=== PATIENT | female | born 1990 | race Two or more races ===

== ENCOUNTER → 2016-10-02 | Outpatient (CLI) | payer OTHER | LOC: FIMAGING 10:35 | PROVIDERS: ATTEND Midwife | DX: O99.212 Obesity complicating pregnancy, second trimester (principal); Z3A.20 20 weeks gestation of pregnancy; Z68.41 Body mass index [BMI] 40.0-44.9, adult ==

== ENCOUNTER → 2016-11-13 | Outpatient (CLI) | payer OTHER | LOC: FIMAGING 12:47 | PROVIDERS: ATTEND Midwife | DX: O99.212 Obesity complicating pregnancy, second trimester (principal); Z3A.26 26 weeks gestation of pregnancy ==

== ENCOUNTER → 2016-12-12 | Outpatient (CLI) | payer OTHER | LOC: FIMAGING 12:39 | PROVIDERS: ATTEND Midwife | DX: O99.213 Obesity complicating pregnancy, third trimester (principal); Z3A.30 30 weeks gestation of pregnancy ==

== ENCOUNTER 2017-02-10 16:07 | Observation (INO) | payer OTHER ==
--- NOTE | 2017-02-10 19:30 | SOAPPROG ---
SOAP Progress Note Assessment/Plan: Assessment: [id number] with IUP @ 39-3wks (by L/10) No evidence of SROM/labor GBS Negative Cat 1 FHR tracing Plan: d/c home labor prec/FKC f/u in office at next sched appt Dr Louisa Howell aware and agrees with POC 02/10/17 19:27 02/11/17 01:32 MST Subjective: Pt presents to L&D with c/o ?leaking fluid since 0500. She denies any VB or regular contractions. She reports +FM. She denies any headaches, visual changes , epigastric pain. - Time Spent With Patient Time Spent With Patient: approximately 60 min was spent with pt, of which, approximately 45 minutes was on direct counseling and coordination of care. - Pending Discharge Pending Discharge Within 24 Hours: Yes Pending Discharge Date: 02/12/17 Pending Discharge Time: 11:00 Physical Exam - Physical Exam General Appearance: WD/WN, alert, no apparent distress Neck: supple Respiratory: lungs clear, normal breath sounds Cardiac/Chest: regular rate, rhythm Abdomen: non-tender, soft Pelvic Exam: other (negative nitrazine, negative pooling, negative valsalva, negative ferning) Rectal: deferred Skin: normal color, warm/dry Extremities: non-tender Neuro/Psych: no motor/sensory deficits, alert, normal mood/affect, oriented x 3 ICD10 Worksheet Patient Problems: Problems Problem Status Onset H/O anxiety disorder Acute Obesity affecting Acute Supervision of normal in third trimester Acute - ICD10 Problem Qualifiers (1) Supervision of normal in third trimester Qualifiers: Normal : normal first Qualified Code(s): Z34.03 - Encounter for supervision of normal first , third trimester (2) Obesity affecting Qualifiers: Trimester: third trimester Qualified Code(s): O99.213 - Obesity complicating , third trimester (3) H/O anxiety disorder History of Present Illness - General Stated Complaint: c/o ?LOF Source: Patient (This is a [id number] with IUP@ 39-3wks (by L/10) that presents to L&D with c/o ?LOF. She states she had a couple small "gushes" of fluid this morning. She denies any current leaking of fluid. She denies any contractions, VB. She reports +FM. She states the last time she felt gush of fluid was around 1000. She denies any headaches, blurred visual/changes, epigastric pain. She state she overall feels good.) Allergies/Adverse Reactions: Penicillins Allergy (Severe, Verified 02/10/17 19:07) Rash prednisone Allergy (Mild, Verified 02/10/17 19:04) THRUSH IN MOUTH Home Medications: Medication Instructions Recorded 1 tab PO 02/10/17
== END 2017-02-10 23:50 | disposition home or self-care (01) ==
LOC: INTOOBSV 16:07 → FLD 16:07
PROVIDERS: ADMIT Advanced Practice Midwife; ATTEND Advanced Practice Midwife
DX: O99.89 Other specified diseases and conditions complicating pregnancy, childbirth and the puerperium (principal); O99.213 Obesity complicating pregnancy, third trimester; Z3A.39 39 weeks gestation of pregnancy
CPT/HCPCS: G0378 ×2

== ENCOUNTER 2017-02-11 23:20 | Inpatient (IN) | payer OTHER ==
[2017-02-12] MEDS ORDERED: OLIVE OIL 118 ML BTL MISC PRN (00:47)
[2017-02-12] MEDS ORDERED: OXYTOCIN 20 UNIT in LR 1,000 ML IV PRN (00:47)
[2017-02-12] MEDS ORDERED: TERBUTALINE SULFATE 1 MG/ML VIAL IV PRN (00:47)
[2017-02-12] MEDS ORDERED: EPSOM SALT 454 GM TP PRN (00:47)
[2017-02-12] MEDS ORDERED: LR 1,000 ML IV PRN (00:47)
--- NOTE | 2017-02-12 01:05 | PDGENHP ---
History and Physical - Chief Complaint painful contractions, 39 weeks gestation - History of Present Illness 26-year-old G1 female @ 39.5 weeks (EDC 02/14/17 by LMP c/w US) presents with painful contractions. She was seen on L&D on 02/10/17 with complaints of LOF, but was ruled out for rupture. She states that she began feeling painful contractions at 8AM on 02/11. By evening of 02/11 she was feeling painful contractions which took her breath away every 2-5 minutes. She still feels leakage of clear fluid. She denies vaginal bleeding. is complicated by morbid obesity, suspect EFW 97%ile (3rd trimester scan), transfer of care from [facility] @ 35 weeks. A+ / Antibody screen negative / RPR NR / Rubella Immune / HBsAg Neg / HIV Neg / Baseline PIH labs Neg / 24 hr urine protein Neg / Varicella Immune / 1 hr GTT 82. History Information - Allergies/Home Medication List Allergies/Adverse Reactions: Penicillins Allergy (Severe, Verified 02/10/17 19:07) Rash prednisone Allergy (Mild, Verified 02/10/17 19:04) THRUSH IN MOUTH Home Medications: 1 tab PO 02/10/17 [Last Taken 02/10/17] I have personally reviewed and updated: family history, medical history, social history, surgical history - Past Medical History no pertinent PMH Additional medical history: MORBID OBESITY - Surgical History Reports: no pertinent surgical hx - Social History Smoking Status: Former smoker Alcohol Use: None Drug Use: None Review of Systems Review of Systems: ROS: 10pt was reviewed & negative except for what was stated in HPI & below Physical Exam Physical Exam: Constitutional: uncomfortable Cardiovascular: regular rate and rhythym, no murmur, rub, or gallop Respiratory: clear to auscultation Gastrointestinal: soft, non-tender abdomen, other (morbidly obese abdomen, difficult to palpate fundus) Genitourinary: other (SSE: no pooling, fern negative; CE: 1 cm dilated / 95% effaced / -3 station / posterior) Skin: warm Neurologic: AAOx3, sensation intact bilaterally Psychiatric: interacting appropriately, anxious Lab Data & Imaging Review Interpretation: FHR tracin, cat I. [place]: q 3-5 minutes, lasting 30-60s, regular Assessment & Plan Assessment: 26-year-old G1 female @ 39.5 weeks gestation with early labor, painful contractions. c/b late OMER, morbid obesity, and suspect EFW >90%ile. Plan: Admit for expectant management of labor. Patient desires epidural for pain management.
--- NOTE | 2017-02-12 02:10 | OBPROG ---
Labor Progress Note Assessment/Plan: Assessment: 26-year-old G1 female @ 39.5 weeks in early labor. Painful contractions. Plan: Anesthesia consulted for epidural. Vertex confirmed with bedside US. 02/12/17 02:08 Subjective/Intrapartum Course: 02/12/17 02:09 Painful contractions. - SVE Dilation (cm): 1 Effacement (%): 90 Station: -3 Membranes: Intact - Contraction Pattern Assessment Current Contraction Pattern: Regular - FHR Assessment [place] FHR (bpm): 140 FHR Pattern Variability: Moderate FHR Category: 1 Oxytocin Orders Assessment - Pre-Induction/Augmentation Assessment Gestational Age: 39 week(s) and 5 day(s) ICD10 Worksheet Patient Problems: Problems Problem Status Onset H/O anxiety disorder Acute Obesity affecting Acute Supervision of normal in third trimester Acute
[2017-02-12 02:14] LABS: % IMMATURE GRANULYOCYTES 1.5 % (0.0-1.1); ABSOLUTE IMMATURE GRANULOCYTES 0.28 10^3/uL (0.00-0.10); ABSOLUTE NRBC COUNT 0.04 10^3/uL (0-0.01); ADD DIFF? NO; ADD MORPH? NO; ADD SCAN? NO; ATYPICAL LYMPHOCYTE FLAG 0 (0-99); FRAGMENT RBC FLAG 20 (0-99); HEMATOCRIT 35.6 % (38.0-47.0); HEMOGLOBIN 10.8 g/dL (12.6-16.3); LEFT SHIFT FLG 10 (0-99); LIPEMIA HEMOLYSIS FLAG 80 (0-99); MEAN CELL HEMOGLOBIN CONCENTR. 30.3 g/dL (32.4-36.7); MEAN CELL VOLUME 79.1 fL (81.5-99.8); MEAN PLATELET VOLUME 11.9 fL (8.7-11.7); NRBC-AUTO% 0.2 % (0.0-0.2); PLATELET CLUMPS FLAG 0 (0-99); PLATELET COUNT 301 10^3/uL (150-400); RED CELL DISTRIBUTION WIDTH 16.2 % (11.5-15.2)
[2017-02-12] MEDS ORDERED: OLIVE OIL 118 ML BTL ONE (02:23)
[2017-02-12] MEDS ORDERED: OXYTOCIN 10 UNIT/ML VIAL ONE (02:23)
[2017-02-12] MEDS ORDERED: AMMONIA AROMATIC 1 EACH AMP IH ONE (02:23)
[2017-02-12] MEDS ORDERED: LIDOCAINE 1% 300 MG/30 ML SDV ONE (02:23)
[2017-02-12] MEDS ORDERED: TERBUTALINE SULFATE 1 MG/ML VIAL ONE (02:23)
[2017-02-12] MEDS ORDERED: MISOPROSTOL 200 MCG TAB ONE (02:24)
[2017-02-12] MEDS ORDERED: ACETAMINOPHEN 325 MG TAB PO ONE (02:30)
[2017-02-12] MEDS ORDERED: ONDANSETRON 4 MG/2 ML VIAL IVP PRN ×2 (02:40→10:01)
[2017-02-12] MEDS ORDERED: PHENYLEPHRINE HCL 100 MCG/ML SYR IVP PRN ×2 (02:40→10:01)
--- NOTE | 2017-02-12 02:40 | PREANESOB ---
Obstetric Pre-Anesthesia Info - General Info Proposed Procedure: 26 yo for leonel : 1 Para: 0 ANUPAMA: 02/14/17 Gestational Age: 39 week(s) and 5 day(s) - Info Status: Full Term - Labor Status Cervical Dilation per last OB SVE: 1 Station per last OB SVE: -3 Anesthesia ROS: bmi 54 Allergies/Adverse Reactions: Allergy/AdvReac Type Severity Reaction Status Date / Time Penicillins Allergy Severe Rash Verified 02/10/17 19:07 prednisone Allergy Mild THRUSH IN Verified 02/10/17 19:04 MOUTH Home Medications: Medication Instructions Recorded 1 tab PO 02/10/17 Visit Medications: Generic Name Dose Route Start Last Admin Trade Name Freq PRN Reason Stop Dose Admin Lactated Ringer's 1,000 mls @ 0 mls/hr 02/12/17 00:47 02/12/17 02:04 Lr IV 08/11/17 00:46 1,000 mls PRN PRN Administration SEE PROTOCOL CONDITIONS Protocol Per Protocol Oxytocin 20 unit/ Lactated 1,002 mls @ 150 mls/hr 02/12/17 00:47 Ringer's IV PRN PRN Post- bleeding Ibuprofen 600 mg 02/12/17 00:47 Motrin PO 08/11/17 00:46 Q6HRS PRN post , inflammation Magnesium Sulfate 454 gm 02/12/17 00:47 Epsom Salt TP 08/11/17 00:46 Q1H PRN perineal discomfort [place] Oil 118 ml 02/12/17 00:47 Sweet Oil MISC 08/11/17 00:46 ONCE PRN perineal massage Terbutaline Sulfate 0.25 mg 02/12/17 00:47 Brethine IV 08/11/17 00:46 ONCE PRN Tachysystole Discontinued Medications Generic Name Dose Route Start Last Admin Trade Name Freq PRN Reason Stop Dose Admin Acetaminophen 650 mg 02/12/17 02:30 Tylenol PO 02/12/17 02:31 ONCE ONE Ammonia (Aromatic Spirit) Confirm 02/12/17 02:23 Ammonia Aromatic Administered 02/12/17 02:24 Dose 1 each IH .STK-MED ONE Ephedrine Sulfate Confirm 02/12/17 02:23 Ephedrine Sulfate Administered 02/12/17 02:24 Dose 50 mg .ROUTE .STK-MED ONE Lidocaine HCl Confirm 02/12/17 02:23 Lidocaine Hcl 1% Administered 02/12/17 02:24 Dose 300 mg .ROUTE .STK-MED ONE Misoprostol Confirm 02/12/17 02:24 Cytotec Administered 02/12/17 02:25 Dose 800 mcg .ROUTE .STK-MED ONE [place] Oil Confirm 02/12/17 02:23 Sweet Oil Administered 02/12/17 02:24 Dose 118 ml .ROUTE .STK-MED ONE Oxytocin Confirm 02/12/17 02:23 Pitocin Administered 02/12/17 02:24 Dose 40 unit .ROUTE .STK-MED ONE Terbutaline Sulfate Confirm 02/12/17 02:23 Brethine Administered 02/12/17 02:24 Dose 1 mg .ROUTE .STK-MED ONE - Vital Signs Height/Weight (Nursing): Height 5 ft 3 in Weight 137.438 kg Labs: 02/12/17 01:50
[2017-02-12] MEDS ORDERED: PHENYLEPHRINE HCL 100 MCG/ML SYR ONE (02:43)
[2017-02-12] MEDS ORDERED: fentaNYL 100 MCG/2 ML INJ ONE ×3 (02:43→08:13)
[2017-02-12] MEDS ORDERED: BUPIVACAINE 0.25% 30 ML SDV ONE (02:43)
[2017-02-12] MEDS ORDERED: fentaNYL 2MCG/ML/BUP 0.1% RTU 100 ML BAG EP ONE (02:43)
[2017-02-12] MEDS ORDERED: fentaNYL 2MCG/ML/BUP 0.1% RTU 100 ML EP SCH (03:00)
[2017-02-12] MEDS ORDERED: LR 500 ML IV SCH (03:00)
--- NOTE | 2017-02-12 03:34 | POSTANESTH ---
Post Anesthetic Evaluation Cardiovascular Status: Normal, Stable Respiratory Status: Normal, Stable Level of Consciousness/Mental Status: Can Participate in Eval Pain Control: Adequate, Prn Tx Ordered Nausea/Vomiting Control: Adequate, Prn Tx Ordered Complications Possibly Related to Anesthesia: None Noted
[2017-02-12] MEDS ORDERED: D5W LR 1,000 ML IV SCH (05:15)
[2017-02-12] MEDS ORDERED: D5W IV SCH ×2 (05:30→06:00)
[2017-02-12] MEDS ORDERED: GENTAMICIN SULFATE IV SCH ×2 (05:30→06:00)
--- NOTE | 2017-02-12 05:39 | OBPROG ---
Labor Progress Note Assessment/Plan: Assessment: 26-year-old G1 female @ 39.5 weeks in early labor. Painful contractions. Plan: Anesthesia consulted for epidural. Vertex confirmed with bedside US. 02/12/17 02:08 02/12/17 05:20 A/P: 26-year-old G1 female @ 39.5 weeks who presented in labor, now s/ p epidural. 1. Suspect chorioamnionitis: Maternal low-grade fever, maternal tachycardia and tachycardia have raised my suspicion for chorioamnionitis. I offered IV antibiotics for treatment of suspected chorioamnionitis. Patient has severe penicillin allergy so antibiotic choice and dosing was discussed with on-call pharmacist. Ancef 3 g q 8hrs IV and gentamicin 5mg/kg q24 hr IV will be started. Clindamycin will be available if a third antibiotic is appropriate. 2. Category 2 heart rate tracing: I was called by RN to review heart rate tracing and to discuss with patient and her the concerning tracing. heart rate has been difficult to monitor secondary to patient's pain and body habitus. Internal monitors such as scalp electrode are not possible with cervical exam and station of head. However, following epidural placement heart rate tracing with external monitors was obtained without difficulty. Tachycardia with minimal variability for long periods occurred despite resuscitation measures (supplemental O2 mask, IVF bolus, repositioning of patient). I discussed my concern for the heart rate tracing and that if the heart rate persisted as a category II tracing or worsened (i.e., decels) with her cervix being only 1 cm dilated (remote from delivery) that I would strongly suggest a delivery. The patient and her partner, Maykel, were very upset with the idea of a possible operative delivery. They expressed their frustration noting that they felt that they were being forced into interventions to which they did not feel comfortable. They stated that they were not being listened to and that their less-intervention plan has been disregarded each step along this . I offered to monitor FHR tracing further with the additional interventions of D5LR IVF and IV antibiotics for suspected chorioamnionitis. If the tracing worsens I will promptly offer, again, a delivery. 3. Labor progress: Patient is much more relaxed with epidural. Contractions are occurring q 1-2 minutes and patient can feel them. Cervix was stretchable from 1 to 2 cm and remained at 2 cm on exam and is 100% effaced, but high station. 4. Elevated BP: Maternal BP was elevated during discussion (160/100). Cuff size does not seem appropriate and patient was agitated and anxious during conversation. We will monitor BPs closely, monitor for signs/symptoms of PreE and consider drawing PIH labs and treating BPs if they remain elevated. Subjective/Intrapartum Course: 02/12/17 02:09 Painful contractions. 02/12/17 05:39 I was called by RN to evaluate patient and heart rate tracing. Becki (RN ) called out of concern for long periods of tachycardia with minimal variability punctuated by occasional variable decels. Objective: 02/12/17 01:50 Patient ABO/Rh A POSITIVE 02/12/17 01:50 - SVE Dilation (cm): 2 Effacement (%): 100 Station: -3 Membranes: Intact - Contraction Pattern Assessment Current Contraction Pattern: Regular - FHR Assessment [place] FHR (bpm): 170 FHR Pattern Variability: Minimal FHR Category: 2 - Physical Exam Respiratory: chest non-tender, lungs clear Cardiac/Chest: regular rate, rhythm Abdomen: soft, other (firm and painful with contractions) Extremities: non-tender Skin: normal color, warm/dry Neuro/Psych: no motor/sensory deficits, alert, normal mood/affect, oriented x 3 Oxytocin Orders Assessment - Pre-Induction/Augmentation Assessment Gestational Age: 39 week(s) and 5 day(s) ICD10 Worksheet Patient Problems: Problems Problem Status Onset H/O anxiety disorder Acute Obesity affecting Acute Supervision of normal in third trimester Acute
[2017-02-12] MEDS ORDERED: ACETAMINOPHEN 325 MG TAB PO PRN (05:49)
[2017-02-12] MEDS: ceFAZolin 3 GM in D5W 100 ML IV SCH ×2 (06:01→19:21)
[2017-02-12] MEDS ORDERED: LIDO/EPI 2% **for epidural** 20 ML SDV ONE (08:10)
[2017-02-12] MEDS ORDERED: OXYTOCIN 100 UNITS/10 ML VIAL ONE (08:31)
[2017-02-12] MEDS ORDERED: DEXAMETHASONE 4 MG/ML VIAL ONE ×2 (08:32→08:33)
[2017-02-12] MEDS ORDERED: ONDANSETRON 4 MG/2 ML VIAL ONE ×2 (08:33)
[2017-02-12] MEDS ORDERED: morphINE PF 5 MG/10 ML INJ ONE (08:44)
[2017-02-12 09:03] LABS: PH VENOUS CORD BLOOD 7.36 (7.20-7.42)
[2017-02-12] MEDS ORDERED: NALOXONE HCL 0.4 MG/ML INJ IVP PRN (10:01)
[2017-02-12] MEDS ORDERED: BISACODYL 10 MG SUPP PR PRN (10:03)
[2017-02-12] MEDS ORDERED: POLYETHYLENE GLYCOL 3350 17 GM PKT PO PRN (10:03)
[2017-02-12] MEDS ORDERED: DOCUSATE SODIUM 100 MG CAP PO PRN (10:03)
[2017-02-12] MEDS ORDERED: LACTULOSE 20 GM/30 ML UDCUP PO PRN (10:03)
[2017-02-12] MEDS ORDERED: SIMETHICONE 80 MG TAB CHEW PO PRN (10:03)
[2017-02-12] MEDS ORDERED: MAGNESIUM HYDROXIDE 30 ML UDCUP PO PRN (10:03)
--- NOTE | 2017-02-12 10:03 | OBDEL ---
Info Type: Primary Presentation at Delivery: Vertex L&D Analgesia/Anesthesia Type: Epidural GBS+: No Intrapartum Medications: Generic Name Dose Route Start Last Admin Trade Name Freq PRN Reason Stop Dose Admin Dextrose/Lactated Ringer's 1,000 mls @ 125 mls/hr 02/12/17 05:15 02/12/17 05: 00 D5w Lr IV 08/11/17 05:14 1,000 mls CONT SELAM Administration Cefazolin Sodium 3 gm/ 100 mls @ 200 mls/hr 02/12/17 05:15 02/12/17 06:01 Dextrose IV 03/14/17 05:14 100 mls Q8H SELAM Administration Gentamicin Sulfate 432 mg/ 110.8 mls @ 110.8 mls/hr 02/12/17 06:00 02/12/17 06:48 Dextrose IV 03/14/17 05:29 110.8 mls Q24H SELAM Administration Discontinued Medications Generic Name Dose Route Start Last Admin Trade Name Freq PRN Reason Stop Dose Admin Acetaminophen 650 mg 02/12/17 02:30 02/12/17 02:41 Tylenol PO 02/12/17 02:31 650 mg ONCE ONE Administration Lactated Ringer's 1,000 mls @ 0 mls/hr 02/12/17 00:47 02/12/17 02:04 Lr IV 08/11/17 00:46 1,000 mls PRN PRN Administration SEE PROTOCOL CONDITIONS Protocol Per Protocol - Hospital Course Intrapartum: 02/12/17 02:09 Painful contractions. 02/12/17 05:39 I was called by RN to evaluate patient and heart rate tracing. Becki (RN ) called out of concern for long periods of tachycardia with minimal variability punctuated by occasional variable decels. Vaginal Delivery - Labor and Delivery Onset of Contractions Date: 02/11/17 Onset of Contractions Time: 06:00 Cord Gases: Cord Gases Cord Blood PCO2 TNP 02/12/17 08:37 Cord Base Excess TNP 02/12/17 08:37 Cord ABG pH TNP 02/12/17 08:37 Cord VBG pH 7.36 (7.20-7.42) 02/12/17 08:37 Operative Report - Delivery Pre-op Diagnoses: IUP at 39 5/7, suspicious testing remote from delivery Post-op Diagnoses: same plus nuchal cord x 2 History of Prior Section: No Nulliparous Prior to Delivery: No Indications for Current Section: Non-reas. Status Procedure: Unscheduled Surgeon: Verna Xie Firer Locomotive: Angie Cohn (leonard by abdias mcnair) Anesthesiologist: Hansel Multani Complications: Nucal Cord (x2) Specimen(s)/Path: Placenta EBL: 700 Cord Gases: Cord Gases Cord Blood PCO2 TNP 02/12/17 08:37 Cord Base Excess TNP 02/12/17 08:37 Cord ABG pH TNP 02/12/17 08:37 Cord VBG pH 7.36 (7.20-7.42) 02/12/17 08:37 Data [place] Delivery Date: 02/12/17 Delivery Time: 08:33 ANUPAMA: 02/14/17 Gestational Age: 39 week(s) and 5 day(s) Sex of Infant: Female Score (1 Min): 8 Score (5 Min): 9 ICD10 Worksheet Patient Problems: Problems Problem Status Onset H/O anxiety disorder Acute Obesity affecting Acute Supervision of normal in third trimester Acute
--- NOTE | 2017-02-12 10:06 | POSTANESTH ---
Post Anesthetic Evaluation Cardiovascular Status: Normal, Stable Respiratory Status: Normal, Stable Level of Consciousness/Mental Status: Can Participate in Eval Pain Control: Adequate, Prn Tx Ordered Nausea/Vomiting Control: Adequate, Prn Tx Ordered Complications Possibly Related to Anesthesia: None Noted (To OR, epidural dosed , comfortable for surgery, to room 237, minimal discomfort, no nausea.)
--- NOTE | 2017-02-12 10:39 | OBPROG ---
Labor Progress Note Assessment/Plan: Assessment:0700 cat 2 fhr none to minimal variability ise placed none to minimal variability with ise with scalp stimulation no response per dr. ramírez irregular contractions epidural in place comfortable with the contractions denies pain having difficulty with coping and anger about the process and possible section consult dr. macdonald on poc/ dr. ramírez to room to discuss possible section and r/b/a/ recommending a section for a catagory 2 baby Plan:proceed to section patient prepped, patient gave consent. Father of the baby still having difficulty with coping and the plan of care. 02/12/17 10:33 Subjective/Intrapartum Course: 02/12/17 02:09 Painful contractions. 02/12/17 05:39 I was called by RN to evaluate patient and heart rate tracing. Becki (RN ) called out of concern for long periods of tachycardia with minimal variability punctuated by occasional variable decels. Objective: 02/12/17 01:50 Patient ABO/Rh A POSITIVE 02/12/17 01:50 - SVE Membranes: Intact - Contraction Pattern Assessment Current Contraction Pattern: Regular - Physical Exam General Appearance: WD/WN, alert, no apparent distress Respiratory: chest non-tender, lungs clear, normal breath sounds Cardiac/Chest: regular rate, rhythm Abdomen: normal bowel sounds Extremities: normal range of motion, Dina's sign (negative) DTR- Lower Extremities: Knee (R): 1+, Knee (L): 1+ (no clonus) Skin: normal color, warm/dry Neuro/Psych: no motor/sensory deficits, alert, normal mood/affect, oriented x 3 Oxytocin Orders Assessment - Pre-Induction/Augmentation Assessment Gestational Age: 39 week(s) and 5 day(s) ICD10 Worksheet Patient Problems: Problems Problem Status Onset H/O anxiety disorder Acute Obesity affecting Acute Supervision of normal in third trimester Acute
[2017-02-12] MEDS: KETOROLAC 30 MG/1 ML SDV IVP SCH ×2 (11:48→17:36)
--- NOTE | 2017-02-12 14:59 | OBPROG ---
Labor Progress Note Assessment/Plan: Assessment: Plan: Subjective/Intrapartum Course: 02/12/17 02:09 Painful contractions. 02/12/17 05:39 I was called by RN to evaluate patient and heart rate tracing. Becki (RN ) called out of concern for long periods of tachycardia with minimal variability punctuated by occasional variable decels. 02/12/17 14:37 late entry note from 810 am. when I arrived on labor and delivery i was updated on the patient and status. FHT's were in the 170's with minimal variability. I recommended we proceed with a PLTCS. patient and the father of the baby refused. I had a long discussion with the father of the baby and the patient about proceeding with a primary section and my concerns over well being. father of the baby very angry and frustrated with the entire experience so far. he is angry that [facility] left and that we ([facility] did not notify them. He is angry that everyone keeps saything that his partner needs a c section and nobody has given them other options. he is angry at his experiences with most of the staff and providers so far. He does not think that she needs to be induced or that she needs a c section. he wants a second opinion. I offered to have MFM come talk with them but explained heart rate tracing, how the tracing for the last several hours has not been reassuring and that we cannot be reassured that their baby is ok. at time of discussion an external monitor was being used. I asked for permission to check the patient and place and fecg to help more accurately discuss options. an FECG was placed. FHTS were in the 170s with no to minimal variability. no scalp stimulation present. I stated that I strong recommended that we deliver the patient by c section now. fob is very frustrated with lack of options I said they had the right to decline c section but they needed to understand that the baby is showing signs of distress and that the baby may be impaired or have a bad outcome or . I Asked the patient who had just been listening and crying during the discussion what she wanted to do. she stated she was scared and worried that the father of the baby would be mad at her if she had a c section. I asked if she was agreeable to proceeding. she cried and said she was ready now but scared. discussed c section risks and benefits. patient signed consent. anesthesia was notified and we proceeded with a PLTCS Objective: 02/12/17 01:50 Patient ABO/Rh A POSITIVE 02/12/17 01:50 Temp Pulse Resp BP Pulse Ox 36.4 C 88 18 129/83 H 92 02/12/17 14:00 02/12/17 14:00 02/12/17 14:00 02/12/17 14:00 02/12/17 14:00 - SVE Dilation (cm): 3 Effacement (%): 75 Station: -2 Membranes: Intact Amniotic Fluid Color: Clear - Contraction Pattern Assessment Current Contraction Pattern: Regular - FHR Assessment [place] FHR (bpm): 170 FHR Pattern Variability: Absent, Minimal - Procedures Non-surgical Procedures: FSE - AP Antepartum Course: 02/12/17 14:59 transfer of care from [facility] to [facility] Oxytocin Orders Assessment - Pre-Induction/Augmentation Assessment Gestational Age: 39 week(s) and 5 day(s) ICD10 Worksheet Patient Problems: Problems Problem Status Onset H/O anxiety disorder Acute Obesity affecting Acute Supervision of normal in third trimester Acute
--- NOTE | 2017-02-12 19:55 | OBPP ---
Progress Note Assessment/Plan: Assessment:nipples intact hypoactive bs patient changing position frequently vs wnl afebrile ff@u scant rubra lochia baby well is use o2 2l per nasal cannula easley in place draining qs dionicio urine Plan:day of surgery expectant management 02/12/17 10:33 02/12/17 19:53 Subjective/ Course: 02/12/17 19:52 Doing well denies pain. States baby is feeding well. Denies passing gas as of yet. Easley remains in place. Using the IS to assist with decreased difficuties with pneumonia patient has an elevated BMI Objective: 02/12/17 01:50 Patient ABO/Rh A POSITIVE 02/12/17 01:50 Temp Pulse Resp BP Pulse Ox 36.6 C 90 18 119/77 89 L 02/12/17 16:15 02/12/17 16:15 02/12/17 18:38 02/12/17 16:15 02/12/17 18:38 Uterine Position/Fundal Height: At Umbilicus Uterine Tone: Firm Physical Exam - Physical Exam General Appearance: WD/WN, alert, no apparent distress Respiratory: chest non-tender, lungs clear, normal breath sounds Cardiac/Chest: regular rate, rhythm Abdomen: hypoactive bowel sounds, non-tender, soft Extremities: normal range of motion, Dina's sign (negative bilaterally) DTR- Lower Extremities: Knee (R): 1+, Knee (L): 1+ (no clonus) Skin: normal color, warm/dry Neuro/Psych: no motor/sensory deficits, alert, normal mood/affect, oriented x 3
[2017-02-12] MEDS: SENNOSIDES/DOCUSATE SODIUM TAB PO SCH (20:35)
--- NOTE | 2017-02-12 21:26 | GOP ---
[f rep st] OPERATIVE REPORT DATE OF OPERATION: 02/12/2017 SURGEON: Verna Xie DO SUPERVISOR STAGE CARPENTRY: Angie Cohn CNM. ADRIANNA Cook. ANESTHESIA: Epidural. PREOPERATIVE DIAGNOSIS: 1. Intrauterine at 39 and 5/7 weeks' gestation. 2. Suspicious testing remote from delivery. POSTOPERATIVE DIAGNOSIS: 1. Intrauterine at 39 and 5/7 weeks' gestation. 2. Suspicious testing remote from delivery. 3. Tight nuchal cord x2. PROCEDURE PERFORMED: Primary low transverse section. FINDINGS: Viable 8 pounds 4 ounce infant in the cephalic presentation with a tight nuchal cord x2, d elivered. Delivery at 8:33 a.m. Apgars were 8 and 9. Normal ovaries, uterus and tubes. ESTIMATED BLOOD LOSS: 700 cc. INDICATIONS: Patient is a 26-year-old 1, para 0, who is 39 and 5/7 weeks' gestation, who pre sented with painful contractions. She had been seen on Labor and Delivery on 02/10/2017 with complai nt of possible loss of fluid, but was ruled out for rupture of membranes. Her contractions began in the morning of February 11, and she was having to breath through them. When patient was evaluated on February 10, initially the heart tracings was reassuring and then it was flat with decreased sotero iability. It was recommended the patient stay in be augmented but patient declined. Risks of declin ing with a questionable status was reviewed with the patient and patient was discharged to home . She returned in the morning of February 11 with complaint of contractions. She had nonreactive fet al tracings throughout the evening. Multiple suggestions were made for patient to have a primary low transverse section, but the father of the baby and the patient were not agreeable. When I arrived on Labor and Delivery in the morning, the heart tracings was in the 170s with minimal v ariability. We had a long discussion with the patient. I put a scalp electrode on when the patient was 3 cm dilated, and the variability did not increase. There was no scalp skin stimulation. We had a long discussion with the patient, after they initially refused a section, ultimately anisha ent agreed to proceed with a primary low transverse section. Risks and benefits were extens ively reviewed with the patient and patient was properly consented. DESCRIPTION OF PROCEDURE: Patient was taken to the operating room with intravenous fluids in place. She was given 2 g of Ancef and placed on the operating room table. Her epidural was bolused. Venod enrique were placed on her lower extremities. A De Los Santos catheter was already in place and she was prepped and draped in the normal sterile fashion. Anesthesia was assessed and found to be adequate. A Pfan nenstiel skin incision was then made 2 fingerbreadths above the pubic symphysis. The incision was th en carried through the underlying layer of fascia with the Bovie. The fascia was then nicked in the midline and the fascial incision was extended laterally. The superior aspect of the fascial incision was grasped with Ethel, tented up and the underlying rectus muscle dissected off bluntly with the B ovie. Attention was then turned to the inferior aspect of the fascial incision, which in a similar f ashion was grasped with a Ethel, tented up, and the underlying rectus muscle dissected off bluntly w ith the Bovie. The rectus muscle was then in the midline. The peritoneum was identified, tented up, and entered sharply with the Metzenbaum scissors. The incision was extended superiorly an d inferiorly with excellent visualization of the bladder. The bladder blade was then inserted. The vesicouterine peritoneum was identified, tented up, and entered sharply with the Metzenbaum scissors. The incision was extended laterally and a bladder flap was created digitally. The bladder blade wa s then reinserted. The uterus was then incised in low transverse fashion with the scalpel. The uter ine incision was extended laterally. The infant's head was delivered through the incision. Nuchal c ord x2 was reduced at the incision. The viable 8 pounds 4 ounce was then delivered without di fficulty. Cord was clamped x2 and cut after 1 minute. Infant was handed off to awaiting nu rse practitioner. Intact placenta with 3-vessel cord delivered without difficulty. The uterus was t hen exteriorized and cleared of all clots and debris and wrapped in a moist laparotomy sponge. Ovari es, uterus, and tubes were unremarkable. A bladder blade was then reinserted. Hysterotomy was reapp roximated with 0 Vicryl in a running fashion. A 2nd 0 Vicryl stitch was used to imbricate the uterin e incision. Hemostasis was assured. The uterus was then returned to the patient's abdomen. The gut ters were cleared of all clots and debris. Peritoneum was reapproximated with 3-0 Vicryl in a runnin g fashion. The rectus muscle was reapproximated. The fascia was closed with 0 Vicryl in a running f ashion. The subcutaneous tissue was found to be hemostatic. Bridget's tissue was reapproximated with 2-0 Vicryl and the skin was then closed with elaine. Sponge, lap, and needle count correct x2. Th e patient was transported to recovery room in stable condition. . /[id number]/MODL
[2017-02-13] MEDS: KETOROLAC 30 MG/1 ML SDV IVP SCH ×2 (00:05→05:53)
[2017-02-13] MEDS: SENNOSIDES/DOCUSATE SODIUM TAB PO SCH ×2 (10:43→20:30)
[2017-02-13] MEDS: HYDROCODONE/APAP 5/325 TAB PO PRN ×3 (13:17→21:38)
[2017-02-13] MEDS: IBUPROFEN 600 MG TAB PO PRN ×2 (13:18→20:29)
--- NOTE | 2017-02-13 15:45 | OBPP ---
Progress Note Assessment/Plan: Assessment: POD 1 s/p primary C/S due to nonreassuring status morbid obesity Plan: Doing well, connie pain meds, reg diet, urinating fine. cont routine care 02/13/17 15:42 Subjective/ Course: 02/12/17 19:52 Doing well denies pain. States baby is feeding well. Denies passing gas as of yet. De Los Santos remains in place. Using the IS to assist with decreased difficuties with pneumonia patient has an elevated BMI 02/13/17 15:43 Doing well today. very happy with baby. working on latching and baby doing well. able to urinate without problems. connie reg diet. has been sitting up BF for two hours and not light headed. hydrating well. Objective: 02/13/17 03:45 Patient ABO/Rh A POSITIVE 02/12/17 01:50 Temp Pulse Resp BP Pulse Ox 36.9 C 98 18 96/58 L 97 02/13/17 12:19 02/13/17 12:19 02/13/17 12:19 02/13/17 12:19 02/13/17 12:19 Uterine Position/Fundal Height: Umbilicus -1 Uterine Tone: Firm Physical Exam - Physical Exam Abdomen: non-tender (approp post op tenderness), soft, dressing (CDI) Extremities: non-tender, pedal edema (mild) Skin: normal color, warm/dry Neuro/Psych: alert, normal mood/affect
[2017-02-13] MEDS: IRON POLYSAC/IRON HEME 28 MG TAB PO SCH (20:30)
[2017-02-14] MEDS: HYDROCODONE/APAP 5/325 TAB PO PRN ×6 (01:29→21:37)
[2017-02-14] MEDS: IBUPROFEN 600 MG TAB PO PRN ×4 (02:45→21:36)
[2017-02-14] MEDS: IRON POLYSAC/IRON HEME 28 MG TAB PO SCH ×2 (08:55→21:37)
[2017-02-14] MEDS: SENNOSIDES/DOCUSATE SODIUM TAB PO SCH ×2 (08:55→21:37)
--- NOTE | 2017-02-14 10:18 | OBPP ---
Progress Note Assessment/Plan: Assessment: pod# 2 s/p PLTCs for suspicious testing remote from delivery anemia on iron Plan: iron routine post and post operative care increase activity 02/14/17 10:15 Subjective/ Course: 02/12/17 19:52 Doing well denies pain. States baby is feeding well. Denies passing gas as of yet. De Los Santos remains in place. Using the IS to assist with decreased difficuties with pneumonia patient has an elevated BMI 02/13/17 15:43 Doing well today. very happy with baby. working on latching and baby doing well. able to urinate without problems. connie reg diet. has been sitting up BF for two hours and not light headed. hydrating well. 02/14/17 10:16 patient is doing well. pain is well controlled. normal lochia. passing gas. hasnt had a bowel movement. denies headache and changes in vision. working on breast feeding. baby is under bili lights Objective: 02/13/17 03:45 Patient ABO/Rh A POSITIVE 02/12/17 01:50 Temp Pulse Resp BP Pulse Ox 36.1 C 89 16 135/78 H 96 02/14/17 08:00 02/14/17 08:00 02/14/17 08:00 02/14/17 08:00 02/14/17 08:00 Uterine Position/Fundal Height: Umbilicus -2 Uterine Tone: Firm Physical Exam - Physical Exam Neck: non-tender, full range of motion Respiratory: chest non-tender, lungs clear, normal breath sounds Cardiac/Chest: normal peripheral pulses, regular rate, rhythm Abdomen: normal bowel sounds, non-tender Extremities: normal range of motion, non-tender, normal inspection, normal capillary refill Skin: normal color, warm/dry Neuro/Psych: no motor/sensory deficits, alert, normal mood/affect, oriented x 3
[2017-02-15] MEDS: HYDROCODONE/APAP 5/325 TAB PO PRN ×3 (01:32→14:36)
[2017-02-15] MEDS: IBUPROFEN 600 MG TAB PO PRN ×3 (03:00→16:46)
[2017-02-15] MEDS ORDERED: FLU VACC QS 2017-18 (3YR+)/PF 0.5 ML SYR (FLUARIX QUAD) IM ONE ×2 (09:52→14:22)
[2017-02-15] MEDS: IRON POLYSAC/IRON HEME 28 MG TAB PO SCH ×2 (09:55→21:21)
[2017-02-15] MEDS: SENNOSIDES/DOCUSATE SODIUM TAB PO SCH ×2 (09:58→21:21)
--- NOTE | 2017-02-15 12:06 | OBPP ---
Progress Note Assessment/Plan: Assessment: [id number] s/p primary c/s (NRFHTs remote from delivery) elevated BMI Plan: routine post op care ambulate cont plan to remove elaine and d/c home tomorrow 02/15/17 12:01 Subjective/ Course: 02/12/17 19:52 Doing well denies pain. States baby is feeding well. Denies passing gas as of yet. De Los Santos remains in place. Using the IS to assist with decreased difficuties with pneumonia patient has an elevated BMI 02/13/17 15:43 Doing well today. very happy with baby. working on latching and baby doing well. able to urinate without problems. connie reg diet. has been sitting up BF for two hours and not light headed. hydrating well. 02/14/17 10:16 patient is doing well. pain is well controlled. normal lochia. passing gas. hasnt had a bowel movement. denies headache and changes in vision. working on breast feeding. baby is under bili lights 02/15/17 12:06 pt doing well, she is ambulating. She reports pain minimal and controlled with pain meds. She reports passing gas and having BM. She denies any headaches, visual changes, epigastric pain. She is . Objective: 02/13/17 03:45 Patient ABO/Rh A POSITIVE 02/12/17 01:50 Temp Pulse Resp BP Pulse Ox 36.3 C 100 20 134/95 H 97 02/15/17 08:00 02/15/17 08:00 02/15/17 08:00 02/15/17 08:00 02/15/17 08:00 Physical Exam - Physical Exam General Appearance: WD/WN, alert, no apparent distress, obese Neck: supple Respiratory: lungs clear, normal breath sounds Cardiac/Chest: regular rate, rhythm Abdomen: normal bowel sounds, soft, incision (clean, dry, intact; elaine present) Extremities: non-tender, swelling (1+pedal), Dina's sign (negative) Skin: normal color, warm/dry Neuro/Psych: alert, normal mood/affect, oriented x 3
[2017-02-16] MEDS: IBUPROFEN 600 MG TAB PO PRN ×3 (00:04→10:45)
[2017-02-16 10:02] VITALS: RESP 16; TEMP 98.7; O2SAT 95
[2017-02-16] MEDS: IRON POLYSAC/IRON HEME 28 MG TAB PO SCH (10:45)
[2017-02-16] MEDS: SENNOSIDES/DOCUSATE SODIUM TAB PO SCH (11:02)
[2017-02-16 12:44] VITALS: BP 124/77; PULSE 92
--- NOTE | 2017-02-16 15:11 | OBPP ---
Progress Note Assessment/Plan: Assessment: 26-year-old G1 female @ 39.5 weeks in early labor. Painful contractions. Plan: Anesthesia consulted for epidural. Vertex confirmed with bedside US. 02/12/17 02:08 02/12/17 05:20 A/P: 26-year-old G1 female @ 39.5 weeks who presented in labor, now s/ p epidural. 1. Suspect chorioamnionitis: Maternal low-grade fever, maternal tachycardia and tachycardia have raised my suspicion for chorioamnionitis. I offered IV antibiotics for treatment of suspected chorioamnionitis. Patient has severe penicillin allergy so antibiotic choice and dosing was discussed with on-call pharmacist. Ancef 3 g q 8hrs IV and gentamicin 5mg/kg q24 hr IV will be started. Clindamycin will be available if a third antibiotic is appropriate. 2. Category 2 heart rate tracing: I was called by RN to review heart rate tracing and to discuss with patient and her the concerning tracing. heart rate has been difficult to monitor secondary to patient's pain and body habitus. Internal monitors such as scalp electrode are not possible with cervical exam and station of head. However, following epidural placement heart rate tracing with external monitors was obtained without difficulty. Tachycardia with minimal variability for long periods occurred despite resuscitation measures (supplemental O2 mask, IVF bolus, repositioning of patient). I discussed my concern for the heart rate tracing and that if the heart rate persisted as a category II tracing or worsened (i.e., decels) with her cervix being only 1 cm dilated (remote from delivery) that I would strongly suggest a delivery. The patient and her partner, Maykel, were very upset with the idea of a possible operative delivery. They expressed their frustration noting that they felt that they were being forced into interventions to which they did not feel comfortable. They stated that they were not being listened to and that their less-intervention plan has been disregarded each step along this . I offered to monitor FHR tracing further with the additional interventions of D5LR IVF and IV antibiotics for suspected chorioamnionitis. If the tracing worsens I will promptly offer, again, a delivery. 3. Labor progress: Patient is much more relaxed with epidural. Contractions are occurring q 1-2 minutes and patient can feel them. Cervix was stretchable from 1 to 2 cm and remained at 2 cm on exam and is 100% effaced, but high station. 4. Elevated BP: Maternal BP was elevated during discussion (160/100). Cuff size does not seem appropriate and patient was agitated and anxious during conversation. We will monitor BPs closely, monitor for signs/symptoms of PreE and consider drawing PIH labs and treating BPs if they remain elevated. 02/16/17 15:08 26-year-old female POD#4 s/p 1CD for intolerance of labor remote from delivery. and post- complicated by chorioamnionitis, maternal obesity, and maternal chronic hypertension. Patient is doing well today and desires DC home. Subjective/ Course: 02/12/17 19:52 Doing well denies pain. States baby is feeding well. Denies passing gas as of yet. De Los Santos remains in place. Using the IS to assist with decreased difficuties with pneumonia patient has an elevated BMI 02/13/17 15:43 Doing well today. very happy with baby. working on latching and baby doing well. able to urinate without problems. connie reg diet. has been sitting up BF for two hours and not light headed. hydrating well. 02/14/17 10:16 patient is doing well. pain is well controlled. normal lochia. passing gas. hasnt had a bowel movement. denies headache and changes in vision. working on breast feeding. baby is under bili lights 02/15/17 12:06 pt doing well, she is ambulating. She reports pain minimal and controlled with pain meds. She reports passing gas and having BM. She denies any headaches, visual changes, epigastric pain. She is . 02/16/17 15:10 Patient reports that she has been up to shower. Pain is controlled with medications. She is passing flatus and has had BM since OR. She denies fever, chills or PreE symptoms. Objective: 02/13/17 03:45 Patient ABO/Rh A POSITIVE 02/12/17 01:50 Temp Pulse Resp BP Pulse Ox 37.1 C 92 16 124/77 H 95 02/16/17 08:30 02/16/17 12:20 02/16/17 08:30 02/16/17 12:20 02/16/17 08:30 Physical Exam - Physical Exam EENT: normal ENT inspection Neck: supple Respiratory: lungs clear, normal breath sounds Cardiac/Chest: regular rate, rhythm Abdomen: normal bowel sounds, soft, incision (appropriately tender, incision is clean/dry/intact (tucked under pannus), elaine are now out), other Extremities: non-tender, normal inspection DTR- Lower Extremities: Knee (R): 1+, Knee (L): 1+ Skin: normal color, warm/dry Neuro/Psych: no motor/sensory deficits, alert, normal mood/affect, oriented x 3
--- NOTE | 2017-02-16 15:16 | OBGCSDC ---
General Delivery Information - General Info : 1 Para: 1 Abortions: 0 Type: Primary L&D Analgesia/Anesthesia Type: Epidural Admission Date: 02/12/17 Labs: Patient ABO/Rh A POSITIVE 02/12/17 01:50 Hct 28.7 % (38.0-47.0) L 02/13/17 03:45 - Hospital Course Antepartum: 02/12/17 14:59 transfer of care from [facility] to [facility] Intrapartum: 02/12/17 02:09 Painful contractions. 02/12/17 05:39 I was called by RN to evaluate patient and heart rate tracing. Becki (RN ) called out of concern for long periods of tachycardia with minimal variability punctuated by occasional variable decels. : 02/12/17 19:52 Doing well denies pain. States baby is feeding well. Denies passing gas as of yet. De Los Santos remains in place. Using the IS to assist with decreased difficuties with pneumonia patient has an elevated BMI 02/13/17 15:43 Doing well today. very happy with baby. working on latching and baby doing well. able to urinate without problems. connie reg diet. has been sitting up BF for two hours and not light headed. hydrating well. 02/14/17 10:16 patient is doing well. pain is well controlled. normal lochia. passing gas. hasnt had a bowel movement. denies headache and changes in vision. working on breast feeding. baby is under bili lights 02/15/17 12:06 pt doing well, she is ambulating. She reports pain minimal and controlled with pain meds. She reports passing gas and having BM. She denies any headaches, visual changes, epigastric pain. She is . 02/16/17 15:10 Patient reports that she has been up to shower. Pain is controlled with medications. She is passing flatus and has had BM since OR. She denies fever, chills or PreE symptoms. Vaginal - Diagnosis Amniotic Fluid Color: Clear - Procedures Non-surgical Procedures: FSE - Delivery Providers Surgeon: Verna Xie Quality Control Head: Angie Cohn (leonard by abdias mcnair) Anesthesiologist: Hansel Multani - Delivery Indications for Current Section: Non-reas. Status Non-surgical Procedures: FSE Surgical Procedures: Unscheduled Intra-op Complications: Nucal Cord (x2) EBL: [address] [place] [address] [place] Delivery Date: 02/12/17 Delivery Time: 08:33 ANUPAMA: 02/14/17 Gestational Age: 40 week(s) and 2 day(s) Sex of Infant: Female [place] Weight (gm): 3746 kg Score (1 Min): 8 Score (5 Min): 9 Discharge Information - Discharge Information Prescriptions: Hydrocodone/APAP 5/325 [[place] 5/325 (*)] 1 - 2 tab PO Q4HRS PRN #30 tab PRN Reason: Pain, Moderate Ibuprofen [Motrin (*)] 600 mg PO Q6HRS PRN #30 tab PRN Reason: post , inflammation Docusate Sodium [Colace 100 MG (*)] 100 mg PO BID PRN #60 cap PRN Reason: Constipation Iron Polysacch/Iron Heme Polyp [Bifera] 28 mg PO BID #60 tab Condition: Good Instruction/Follow Up: One Week (Incision and BP check)
== END 2017-02-16 15:30 | disposition home or self-care (01) | DRG 765 ==
LOC: FLD 23:20 → OBSVTOIN 02-12 00:47 → FOB 02-12 12:26
PROVIDERS: ADMIT Obstetrics & Gynecology Gynecology; ATTEND Obstetrics & Gynecology Gynecology
PROC: 10D00Z1 Extraction of Products of Conception, Low, Open Approach (ICD-10-PCS; principal; 2017-02-12)
DX: O76 Abnormality in fetal heart rate and rhythm complicating labor and delivery (principal); O41.1230 Chorioamnionitis, third trimester, not applicable or unspecified; Z37.0 Single live birth; O62.8 Other abnormalities of forces of labor; Z3A.39 39 weeks gestation of pregnancy; O99.89 Other specified diseases and conditions complicating pregnancy, childbirth and the puerperium; O99.213 Obesity complicating pregnancy, third trimester; Z88.0 Allergy status to penicillin; O99.02 Anemia complicating childbirth; D64.9 Anemia, unspecified; Z23 Encounter for immunization
CPT/HCPCS: G0008; J0690; J1100; J1885; J2274; J2370; J2405; J2590; J3010; J3105